=== PATIENT | male | born 1955 | race Caucasian/White ===

== ENCOUNTER 2017-01-04 05:29 | Inpatient (IN) | payer BC ==
[2017-01-03 09:51] LABS: WBC (NOT ORDERED) (RFLEX) 0 (0-5)
[2017-01-03 10:00] LABS: ASCORBIC ACID (UR NOT ORDER) NEG (NEG); BILIRUBIN, URINE NEGATIVE (NEG); KETONE, URINE NEGATIVE (NEG); LEUKOCYTE ESTERASE(NOT OR NEG (NEG)
[2017-01-03 10:28] LABS: HEMATOCRIT 43.9 % (40.0-51.0); HEMOGLOBIN 14.8 g/dL (13.6-17.8)
--- NOTE | ~2017-01-04 | OP ---
Record Of Operation [facility] [address] [place]. [address] NAME: CHERYL LONOGRIA : 55 STATUS : DIS IN PAT#: [id number] AGE: 61 ADM/REG DATE : 01/04/17 MR#: [id number] REPORT SERV DATE: 01/05/17 DICTATED BY: VIKTOR BERG DATE: 01/05/17 REPORT STATUS : Draft TRANSCRIBED BY: MODL DATE: 01/05/17 DATE OF PROCEDURE: 01/04/2017 TITLE OF OPERATION: 1. Right robotic-laparoscopic partial nephrectomy. 2. Intraoperative ultrasound of right kidney. PREOPERATIVE DIAGNOSIS: Right renal mass. POSTOPERATIVE DIAGNOSIS: Right renal mass. INDICATIONS: Mr. Longoria is a very pleasant 61-year-old male. He has a T1 renal mass. He has been counseled regarding options including surveillance, resection, and ablation. He has decided on resection. He understands the tumor may be benign. ANESTHESIA: General. COMPLICATIONS: None. IMPLANTS: A 16-Congolese Neville catheter. SPECIMEN: Right kidney tumor. NARRATIVE: The patient was brought to the operating room, identified by his wristband. General anesthesia was induced and Ancef was given for preoperative antibiotics. A 16-Congolese Neville catheter was placed under sterile conditions. The balloon was inflated with 10 mL of sterile water. He was placed in the modified right flank position and secured to the bed with pads and tape. He was then prepped and draped in the sterile fashion. The abdomen was insufflated to a pressure of 15 mmHg using a Veress needle. Standard Xi port placement was performed with four 8 mm ports on the right side of the body. A 5 mm port was placed in the subxiphoid position and a 12 mm port was placed in a supraumbilical position. A locking grasper was placed through the 5 mm port and the liver was retracted cephalad. The abdomen was inspected. There were no significant adhesions. The patient was rotated. The robot was docked. I began the operation by dropping the colon along the white line of Toldt exposing the retroperitoneum. This reflected medially to expose the duodenum. The duodenum was sharply Kocherized. It was not injured. The retroperitoneum was entered beneath the ureter and above the gonadal vein. The kidney was lifted up off the psoas muscle. Care was taken to reflect the psoas muscle fascia inferiorly. There were 2 renal arteries and 2 renal veins which were precisely dissected out. The kidney was then dropped. The Gerota's fascia was incised laterally and the kidney was completely rotated by lysing all adhesions within Gerota's fascia. The tumor was then identified on the posterior upper pole. Intraoperative ultrasound was performed and the location of the tumor was precisely demarcated with ultrasound and electrocautery. Images were taken and placed in the chart. Both arteries were then clamped with bulldog clamps. I resected the tumor out with scissors. There was no tumor entry. The margins were clearly negative on gross inspection. The tumor was placed into an EndoCatch bag. The base of the tumor was overrun with two 3-0 Record Of Operation [address] [address] NAME: CHERYL LONGORIA : 55 STATUS : DIS IN PAT#: [id number] AGE: 61 ADM/REG DATE : 01/04/17 MR#: [id number] REPORT SERV DATE: 01/05/17 DICTATED BY: VIKTOR BERG DATE: 01/05/17 REPORT STATUS : Draft TRANSCRIBED BY: DORA DATE: 01/05/17 V-lock sutures using a sliding Weck technique. Once the base of the tumor was oversewn, the clamps were removed. The ischemia time was 10 minutes. There was no ongoing bleeding. The capsule was closed with 2-0 Vicryl suture using a sliding Weck technique. All bleeding was controlled. A surgical dressing was placed. The kidney was then rotated back to its orthotopic position. Gerota's fascia was reapproximated with a 3-0 V-Loc suture. There was no ongoing bleeding. The robot was undocked. No drain was left as the collecting system was not entered. The robotic ports were removed. The assistant surveyor ports were removed. The skin and fascia were enlarged at the supraumbilical position. The tumor was then removed within his bag and sent to pathology for permanent analysis. The fascia was closed with 0 Monocryl suture using a [id number] technique. Subcutaneous tissue were closed with a 3 0 Vicryl suture in interrupted fashion. The skin was closed with 4-0 Monocryl suture in a subcuticular fashion. Dermabond dressing was placed. A TAP block was placed preoperatively. The patient was woken from anesthesia and transferred to the recovery room in stable condition. JKM/MODL Viktor Berg MD / [id number] CC: Viktor Berg MD
[~2017-01-04 05:29] MED LIST: ALEVE220 MG PO; AMPI500 PO; FLOMAX4 PO; GLUCCHONDR PO; PCET PO; PERCODAN PO; PRILO PO; PYR200 PO
[2017-01-04 11:15] LABS: BASOPHILS 0.2 %; BASOPHILS ABSOLUTE 0.02 10/3/uL (0.0-0.16); EOSINOPHILS 0.4 %; EOSINOPHILS ABSOLUTE 0.05 10/3/uL (0.0-0.53); HEMATOCRIT 41.4 % (40.0-51.0); IMMATURE GRANULOCYTES 0.3 %; IMMATURE GRANULOCYTES ABSOLUTE 0.03 10/3/uL (0.0-0.11); LYMPHOCYTES 12.3 %; LYMPHOCYTES ABSOLUTE 1.41 10/3/uL (0.67-4.30); MANUAL DIFF NO %; MEAN CORPUS HGB CONC 33.8 g/dL (32.0-36.0); MEAN CORPUSCULAR HEMOGLOB 29.6 pg (26.0-34.0); MEAN CORPUSCULAR VOLUME 87.5 fL (80-100); MEAN PLATELET VOLUME 9.4 fL (9.2-13.0); MONOCYTES 1.1 %; MONOCYTES ABSOLUTE 0.13 10/3/uL (0.21-1.20); NEUTROPHILS 85.7 %; NEUTROPHILS ABSOLUTE 9.82 10/3/uL (2.02-8.40); PLATELET COUNT 208 10/3/uL (150-400); RBC DISTRIBUTION WIDTH 12.6 % (12.0-16.0); RED CELL COUNT 4.73 10/6/uL (4.7-6.1); WHITE BLOOD CELLS 11.5 10/3/uL (4.5-10.5)
[2017-01-04 11:27] LABS: BUN (BLOOD UREA NITROGEN) 11 MG/DL (6-23); CALCIUM, SERUM 8.2 MG/DL (8.5-10.4); CHLORIDE, SERUM 108 MMOL/L (96-112); CO2 (CARBON DIOXIDE) 28 MMOL/L (24-34); CREATININE 1.21 MG/DL (0.70-1.30); GFR AFRICAN AMERICAN 74 ML/MIN (>=60); GFR NON AFRICAN AMERICAN 64 ML/MIN (>=60); POTASSIUM, SERUM 4.3 MMOL/L (3.5-5.3); SODIUM, SERUM 142 MMOL/L (135-148)
[2017-01-04 11:28] LABS: GLUCOSE, SERUM 146 MG/DL (60-99)
[2017-01-05 08:02] LABS: BASOPHILS 0.1 %; BASOPHILS ABSOLUTE 0.01 10/3/uL (0.0-0.16); EOSINOPHILS 0.1 %; EOSINOPHILS ABSOLUTE 0.01 10/3/uL (0.0-0.53); HEMATOCRIT 42.5 % (40.0-51.0); HEMOGLOBIN 14.7 g/dL (13.6-17.8); IMMATURE GRANULOCYTES 0.3 %; IMMATURE GRANULOCYTES ABSOLUTE 0.04 10/3/uL (0.0-0.11); LYMPHOCYTES 9.6 %; LYMPHOCYTES ABSOLUTE 1.51 10/3/uL (0.67-4.30); MANUAL DIFF NO %; MEAN CORPUS HGB CONC 34.6 g/dL (32.0-36.0); MEAN CORPUSCULAR HEMOGLOB 30.2 pg (26.0-34.0); MEAN CORPUSCULAR VOLUME 87.3 fL (80-100); MEAN PLATELET VOLUME 9.8 fL (9.2-13.0); MONOCYTES 9.3 %; MONOCYTES ABSOLUTE 1.46 10/3/uL (0.21-1.20); NEUTROPHILS 80.6 %; NEUTROPHILS ABSOLUTE 12.67 10/3/uL (2.02-8.40); PLATELET COUNT 263 10/3/uL (150-400); RBC DISTRIBUTION WIDTH 12.7 % (12.0-16.0); RED CELL COUNT 4.87 10/6/uL (4.7-6.1); WHITE BLOOD CELLS 15.7 10/3/uL (4.5-10.5)
[2017-01-05 08:18] LABS: BUN (BLOOD UREA NITROGEN) 9 MG/DL (6-23); CALCIUM, SERUM 8.5 MG/DL (8.5-10.4); CHLORIDE, SERUM 108 MMOL/L (96-112); CO2 (CARBON DIOXIDE) 27 MMOL/L (24-34); CREATININE 1.06 MG/DL (0.70-1.30); GFR AFRICAN AMERICAN 87 ML/MIN (>=60); GFR NON AFRICAN AMERICAN 75 ML/MIN (>=60); POTASSIUM, SERUM 3.9 MMOL/L (3.5-5.3); SODIUM, SERUM 142 MMOL/L (135-148)
[2017-01-05 08:19] LABS: GLUCOSE, SERUM 111 MG/DL (60-99)
[2017-01-05] MEDS ORDERED: DSS PO (15:30)
[2017-01-05] MEDS ORDERED: PCET (15:31)
== END 2017-01-05 16:30 | disposition home or self-care (01) | DRG 658 ==
LOC: SDC/OF 05:29 → PACU 10:55 → 4SO 12:04
PROVIDERS: Urology
PROC: 8E0W4CZ Robotic Assisted Procedure of Trunk Region, Percutaneous Endoscopic Approach (ICD-10-PCS; 2017-01-04)
PROC: 0TB04ZZ Excision of Right Kidney, Percutaneous Endoscopic Approach (ICD-10-PCS; principal; 2017-01-04 06:30)
DX: D49.511 Neoplasm of unspecified behavior of right kidney (principal)
CPT/HCPCS: 36415; 80048; 81001; 83735; 85014; 85018; 85025; 86850; 86900; 86901; 88307; 93005; A9270-GY; J0690; J0694; J1170; J2250; J2405; J2710; J2795; J3010